=== PATIENT | male | born 1975 | race Caucasian/White ===

== ENCOUNTER 2017-09-13 13:29 | Inpatient (IN) | payer OTHER ==
[~2017-09-13] VITALS: Ht 154.9 cm; Wt 70.0 kg
[2017-09-13 14:44] LABS: BASOPHILS # (AUTO) 0.01 x10^3/uL (0-0.1); BASOPHILS % (AUTO) 0 % (0-1); EOSINOPHILS # (AUTO) 0.04 x10^3/uL (0-0.4); EOSINOPHILS % (AUTO) 1 % (1-7); LYMPHOCYTES # (AUTO) 1.74 x10^3/uL (1-3.4); LYMPHOCYTES % (AUTO) 33 % (22-44); MD NO; MEAN CORPUSCULAR HEMOGLOBIN 29.4 pg (27.5-34.5); MEAN CORPUSCULAR HGB CONC 33.4 g/dL (33.2-36.2); MEAN PLATELET VOLUME 10.8 fL (7.4-10.4); MONOCYTES # (AUTO) 0.74 x10^3/uL (0.2-0.8); MONOCYTES % (AUTO) 14 % (2-9); NEUTROPHILS # (AUTO) 2.77 x10^3/uL (1.8-6.8); NEUTROPHILS % (AUTO) 52 % (42-75); PLATELET COUNT 115 x10^3/uL (130-400); RED CELL DISTRIBUTION WIDTH 14.6 % (9.4-14.8)
[2017-09-13 14:50] LABS: INTERNATIONAL NORMALIZED RATIO 1.29 (0.93-1.1); PROTHROMBIN TIME 13.2 Seconds (9.6-11.5)
[2017-09-13 14:55] LABS: ALANINE AMINOTRANSFERASE 32 U/L (12-78); ANION GAP 9 mmol/L (5-15); CALCIUM 7.8 mg/dL (8.5-10.1); CHLORIDE 113 mmol/L (98-107); CREATININE 1.04 mg/dL (0.7-1.3)
[2017-09-13 15:00] LABS: ALKALINE PHOSPHATASE 172 U/L (45-117); BILIRUBIN,TOTAL 1.6 mg/dL (0.2-1.0); TOTAL PROTEIN 6.9 g/dL (6.4-8.2); TROPONIN I 0.016 ng/mL (0.000-0.045)
[2017-09-13] MEDS ORDERED: DILTIAZEM 125 MG in DEXTROSE 5% 100 ML IV SCH (15:06)
[2017-09-13] MEDS ORDERED: METOPROLOL 1 MG/ML, 5ML ONE (15:26)
[2017-09-13] MEDS ORDERED: FUROSEMIDE 40 MG/4 ML ONE (15:26)
[2017-09-13] MEDS ORDERED: METOPROLOL 1 MG/ML, 5ML IVPush ONE (15:30)
[2017-09-13] MEDS ORDERED: FUROSEMIDE 40 MG/4 ML IV ONE (15:30)
[2017-09-13] MEDS ORDERED: ACETAMINOPHEN 650 MG/20.3 ML UDC PO PRN (16:30)
[2017-09-13] MEDS ORDERED: ONDANSETRON 2MG/ML, 2ML IV PRN (16:30)
[2017-09-13] MEDS ORDERED: BISACODYL 5 MG EC TABLET PO PRN (16:30)
[2017-09-13] MEDS ORDERED: ONDANSETRON ODT 4 MG PO PRN (16:30)
[2017-09-13] MEDS ORDERED: ZOLPIDEM 5MG TABLET PO PRN (16:30)
[2017-09-13] MEDS ORDERED: VERAPAMIL 2.5 MG/ML, 2ML IVPush PRN (16:30)
[2017-09-13 16:48] LABS: TROPONIN I < 0.015 ng/mL (0.000-0.045)
[2017-09-13 16:51] LABS: FREE T4 (FREE THYROXINE) > 8.00 ng/dL (0.76-1.46)
[2017-09-13 16:55] LABS: THYROID STIMULATING HORMONE < 0.005 mIU/L (0.358-3.740)
[2017-09-13 18:01] VITALS: BP 132/61
[2017-09-13] MEDS: ENOXAPARIN 80 MG/0.8 ML SQ SCH (19:01)
[2017-09-13] MEDS: METOPROLOL TARTRATE 25 MG TABLET PO SCH ×2 (19:01→20:33)
[2017-09-13 19:15] VITALS: BP 129/76
[2017-09-13] MEDS: SODIUM CHLORIDE FLUSH 10ML SYR IVF SCH (20:34)
[2017-09-13 20:39] LABS: MICROSCOPIC NOT IND
[2017-09-13 20:45] LABS: CULTURE INDICATED? NO
[2017-09-13 20:49] LABS: AMPHETAMINE SCREEN, URINE Negative (Negative); BARBITURATE SCREEN, URINE Negative (Negative); BENZODIAZEPINE SCREEN, URINE Negative (Negative); CANNABINOID SCREEN, URINE Negative (Negative); COCAINE SCREEN, URINE Negative (Negative); METHADONE SCREEN, URINE Negative (Negative); OPIATE SCREEN, URINE Negative (Negative)
[2017-09-13 22:20] LABS: TROPONIN I < 0.015 ng/mL (0.000-0.045)
[2017-09-14 02:23] VITALS: BP 116/65
[2017-09-14] MEDS: METOPROLOL TARTRATE 25 MG TABLET PO SCH ×4 (04:49→22:05)
[2017-09-14] MEDS: ENOXAPARIN 80 MG/0.8 ML SQ SCH ×2 (04:49→17:09)
[2017-09-14 05:57] LABS: TROPONIN I < 0.015 ng/mL (0.000-0.045)
[2017-09-14 07:29] VITALS: BP 115/87
[2017-09-14] MEDS: SODIUM CHLORIDE FLUSH 10ML SYR IVF SCH ×2 (09:30→22:05)
[2017-09-14 13:34] VITALS: BP 126/87
[2017-09-14 18:35] VITALS: BP 137/79
[2017-09-15] MEDS: ENOXAPARIN 80 MG/0.8 ML SQ SCH ×2 (04:24→17:31)
[2017-09-15] MEDS: METOPROLOL TARTRATE 25 MG TABLET PO SCH (04:24)
[2017-09-15 04:30] VITALS: BP 120/58
[2017-09-15 04:54] LABS: BASOPHILS % (AUTO) 0 % (0-1); EOSINOPHILS # (AUTO) 0.04 x10^3/uL (0-0.4); EOSINOPHILS % (AUTO) 1 % (1-7); LYMPHOCYTES # (AUTO) 2.03 x10^3/uL (1-3.4); LYMPHOCYTES % (AUTO) 42 % (22-44); MD NO; MEAN CORPUSCULAR HGB CONC 33.8 g/dL (33.2-36.2); MEAN CORPUSCULAR VOLUME 88.8 fL (81-97); MEAN PLATELET VOLUME 10.6 fL (7.4-10.4); MONOCYTES # (AUTO) 0.71 x10^3/uL (0.2-0.8); MONOCYTES % (AUTO) 15 % (2-9); NEUTROPHILS # (AUTO) 2.06 x10^3/uL (1.8-6.8); NEUTROPHILS % (AUTO) 43 % (42-75); PLATELET COUNT 107 x10^3/uL (130-400); RED BLOOD COUNT 3.93 x10^6/uL (4.38-5.82); RED CELL DISTRIBUTION WIDTH 14.9 % (9.4-14.8)
[2017-09-15 05:11] LABS: ALBUMIN 2.5 g/dL (3.4-5.0); ANION GAP 8 mmol/L (5-15); CALCIUM 7.8 mg/dL (8.5-10.1); CHLORIDE 110 mmol/L (98-107)
[2017-09-15 05:17] LABS: ALANINE AMINOTRANSFERASE 29 U/L (12-78); ALKALINE PHOSPHATASE 157 U/L (45-117); CREATININE 0.38 mg/dL (0.7-1.3); TOTAL PROTEIN 6.2 g/dL (6.4-8.2)
[2017-09-15 07:12] VITALS: BP 148/90
[2017-09-15] MEDS ORDERED: MAGNESIUM SULFATE PMX 4GM/100M 100 ML IV ONE (09:00)
[2017-09-15] MEDS ORDERED: POTASSIUM PHOSPHATE 22 MEQ in SODIUM CHLORIDE 0.9% 500 ML IV ONE (09:00)
[2017-09-15] MEDS: SODIUM CHLORIDE FLUSH 10ML SYR IVF SCH ×2 (10:27→21:21)
[2017-09-15] MEDS ORDERED: METOPROLOL TARTRATE 25 MG TABLET PO ONE (11:30)
[2017-09-15 11:32] VITALS: BP 134/80
[2017-09-15 13:40] VITALS: BP 135/76
[2017-09-15] MEDS: METOPROLOL TARTRATE 50 MG TABLET PO SCH (17:31)
[2017-09-15 20:15] VITALS: BP 122/81
[2017-09-16] VITALS (7 sets, daily range): BP systolic 110–146; BP diastolic 64–88
[2017-09-16] MEDS: ENOXAPARIN 80 MG/0.8 ML SQ SCH (04:39)
[2017-09-16 05:00] LABS: ALBUMIN 2.6 g/dL (3.4-5.0); ANION GAP 9 mmol/L (5-15); CALCIUM 8.3 mg/dL (8.5-10.1); CHLORIDE 113 mmol/L (98-107)
[2017-09-16 05:05] LABS: ALANINE AMINOTRANSFERASE 31 U/L (12-78); ALKALINE PHOSPHATASE 156 U/L (45-117); BILIRUBIN,TOTAL 1.9 mg/dL (0.2-1.0); CREATININE 0.37 mg/dL (0.7-1.3); TOTAL PROTEIN 6.4 g/dL (6.4-8.2)
[2017-09-16] MEDS: METOPROLOL TARTRATE 50 MG TABLET PO SCH (06:15)
[2017-09-16] MEDS: SODIUM CHLORIDE FLUSH 10ML SYR IVF SCH ×2 (08:33→20:20)
[2017-09-16] MEDS: DILTIAZEM 90 MG TABLET PO SCH ×3 (10:09→20:20)
[2017-09-16] MEDS: ASPIRIN 325 MG TABLET PO SCH (10:18)
[2017-09-16] MEDS ORDERED: METOPROLOL TARTRATE 100 MG TABLET PO SCH (18:00)
[2017-09-17 01:15] VITALS: BP 118/80
[2017-09-17 05:29] LABS: % IRON SATURATION 18 % (20-55); IRON LEVEL 46 mcg/dL (65-175); TOTAL IRON BINDING CAPACITY 261 mcg/dL (250-450)
[2017-09-17 06:30] VITALS: BP 114/73
[2017-09-17] MEDS: ASPIRIN 325 MG TABLET PO SCH (06:33)
[2017-09-17] MEDS: DILTIAZEM 90 MG TABLET PO SCH ×3 (06:34→15:45)
[2017-09-17 08:08] VITALS: BP 123/66
[2017-09-17] MEDS: SODIUM CHLORIDE FLUSH 10ML SYR IVF SCH (08:15)
[2017-09-17] MEDS ORDERED: ASPI325T17 PO (13:37)
[2017-09-17] MEDS ORDERED: FURO-93 PO (13:37)
[2017-09-17] MEDS ORDERED: DILT360T PO (13:37)
[2017-09-17] MEDS ORDERED: POTA10TA5 PO (13:37)
[2017-09-17 13:45] VITALS: BP 133/91
[2017-09-17] MEDS ORDERED: PNEUMOCOCCAL 23 VACCINE IM-VACC ONE (16:00)
== END 2017-09-17 17:05 | disposition home or self-care (01) | DRG 291 ==
LOC: ED 16:07 → EDIP 16:08 → ED 16:31 → 5SO 18:00 → DCLOUNGE 09-17 14:48
PROVIDERS: ADMIT Internal Medicine; ATTEND Internal Medicine
DX: I50.41 Acute combined systolic (congestive) and diastolic (congestive) heart failure (principal); E43 Unspecified severe protein-calorie malnutrition; D69.6 Thrombocytopenia, unspecified; I27.20 Pulmonary hypertension, unspecified; E83.42 Hypomagnesemia; I08.1 Rheumatic disorders of both mitral and tricuspid valves; I48.91 Unspecified atrial fibrillation; I11.0 Hypertensive heart disease with heart failure; D64.9 Anemia, unspecified; E03.9 Hypothyroidism, unspecified; Z83.3 Family history of diabetes mellitus; Z68.29 Body mass index [BMI] 29.0-29.9, adult
CPT/HCPCS: 36415; 71045; 71275; 76700; 80053; 80074; 80307; 81003; 83540; 83550; 83690; 83735; 83880; 84100; 84439; 84443; 84484; 85025; 85610; 90732; 93005; 93306; 96374; 96375; J1650; J1940; J3475; J7040